=== PATIENT | female | born 1960 | race Caucasian/White ===

== ENCOUNTER 2016-02-23 12:02 | Emergency (ER) | payer BC ==
[2016-02-23 12:20] VITALS: BP 158/96; PULSE 98; TEMP 98.5; BMI 25.8
--- NOTE | 2016-02-23 12:58 | PDOC ---
History of Present Illness - General Chief Complaint: Psychiatric Stated Complaint: DIZZYNESS Time Seen by Provider: 02/23/16 12:04 - History of Present Illness Initial Comments: 02/23/16 13:18 Chief complaint: Warmth and pounding in the chest History of present illness: Patient was feeling well this morning, went shopping , was in a warm crowded store, suddenly felt "a wave of warmth progressing from her feet up her body" accompanied by lightheadedness, perioral and acral tingling, and pounding in her chest. She felt she might pass out, but did not experience syncope or decreased consciousness of any kind. She has a history of anxiety and panic attacks with similar symptoms. Review of systems: Admits that she has had right inguinal pain for several days , described as a momentary sharp stabbing pain that seems to be related to movement and walking. She has been doing a lot of heavy work lately and thinks that she may have strained a muscle. There has been no nausea, vomiting, diaphoresis, diarrhea, chest pain, shortness of breath, hematemesis, melena, bloody stool, urinary tract symptoms, vaginal bleeding or discharge. Remainder of systems reviewed and found to be negative Past medical history: Anxiety, panic attacks, hypertension, right colon resection for infection, details uncertain but probably diverticulitis, childbirth, appendectomy, and cholecystectomy in the distant past. Social history: No tobacco alcohol or prescription drugs. 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 and family stable Family history: Reviewed and noncontributory including early coronary artery disease, metabolic disease including diabetes, and cancer. Physical exam: Alert and oriented 3, well-developed well-nourished, no acute distress, cheerful and cooperative. The patient has no symptoms at present. Afebrile, vital signs normal HEENT clear. Fundi benign with sharp disc margins and good central venous pulsations Neurological C2 to 12 intact. Strength full and symmetric. No focal sensory or motor deficits. Cerebellar intact. Gait stable and unimpaired Neck supple without bruit mass or nodes Chest clear full breath sounds throughout bilaterally no wheezes rales or rhonchi CV S1 and S2 normal without murmur or gallop pulses full and symmetric no JVD or edema 80 and regular. Abdomen nondistended, bowel sounds normal, soft without mass tenderness or organomegaly. Specifically, there is no right lower quadrant or inguinal tenderness to palpation and no pain at present in this area No CVAT Extremities no CCE Skin clear, no rash, good turgor and mucous membranes Impression: Vasovagal near syncope earlier today, symptoms are resolved. Underlying anxiety/panic disorder. Inguinal pain, probably musculoskeletal. Plan: EKG, enzymes, and labs. Urinalysis. Further evaluation and treatment depending on results. Past History - Past Medical History Allergies/Adverse Reactions: Allergies Allergy/AdvReac Type Severity Reaction Status Date / Time aspirin Allergy Rash Verified 02/23/16 12:05 AVELOX Allergy Intermediate Rash Uncoded 02/23/16 12:05 Home Medications: Ambulatory Orders Metoprolol Succinate [Toprol XL -] 25 mg PO HS #0 tab.sr.24h 06/08/11 Biotin 5,000 mcg PO DAILY 02/23/16 Calcium Carbonate/Vitamin D3 [Calcium 600 + Vit D Tablet] 1 each PO DAILY Spironolactone [Aldactone] 100 mg PO DAILY 02/23/16 Anemia: No Asthma: No Cancer: No Cardiac Disorders: No CVA: No COPD: No CHF: No Dementia: No Diabetes: No GI Disorders: No Disorders: No HTN: Yes Hypercholesterolemia: No Liver Disease: No Psychiatric Problems: Yes (PANIC ATTACKS) Seizures: No Thyroid Disease: No - Surgical History Abdominal Surgery: Yes Appendectomy: Yes Cardiac Surgery: No Cholecystectomy: Yes GI Surgery: Yes (COLON RESECTION) Lung Surgery: No Neurologic Surgery: No Orthopedic Surgery: No - Immunization History Immunization Up to Date: Yes - Psycho/Social/Smoking Cessation Hx Anxiety: Yes Suicidal Ideation: No Smoking Status: No Smoking History: Never smoked Have you smoked in the past 12 months: No Number of Cigarettes Smoked Daily: 0 Information on smoking cessation initiated: No Hx Alcohol Use: No Drug/Substance Use Hx: No Substance Use Type: None Hx Substance Use Treatment: No *Physical Exam - Vital Signs Last Vital Signs Temp Pulse Resp BP Pulse Ox 98.5 F 98 H 16 158/96 100 02/23/16 12:12 02/23/16 12:12 02/23/16 12:12 02/23/16 12:12 02/23/16 12:12 ED Treatment Course - LABORATORY CBC & Chemistry Diagram: 02/23/16 13:15 02/23/16 13:15 Medical Decision Making - Medical Decision Making 02/23/16 13:25 EKG reviewed: Normal sinus rhythm, 76/m, occasional PVC, no ST-T wave changes, no signs of ischemia. Probably normal EKG. 02/23/16 14:22 Cardiac enzymes: Negative Urinalysis: Negative. Specifically, no sign of blood that would indicate urinary tract calculus or renal colic. 02/23/16 15:21 Remainder of labs, CBC and chemistries, without significant abnormalities. Patient remains asymptomatic. The nature of vasovagal episodes, panic attacks, and anxiety were discussed with the patient. She is to follow-up with her primary physician for further treatment. She is asymptomatic, fully ambulatory and in no pain or other distress upon discharge with her family to follow up as directed. *DC/Admit/Observation/Transfer Diagnosis at time of Disposition: Vaso-vagal reaction Strain of right inguinal muscle Qualifiers: Encounter type: initial encounter Qualified Code(s): S39.013A - Strain of muscle, fascia and tendon of pelvis, initial encounter - Discharge Dispostion Disposition: HOME Condition at time of disposition: Improved Admit: No - Patient Instructions Printed Discharge Instructions: DI for Syncope in Adults (Fainting) Additional Instructions: Stay well hydrated. Warm compresses to the groin muscles and Tylenol or Advil. See primary physician for recheck in 1-2 days if symptoms persist.
[2016-02-23 13:39] LABS: URINE APPEARANCE Clear; URINE BILIRUBIN Negative (NEGATIVE); URINE BLOOD Negative (NEGATIVE); URINE GLUCOSE (UA) Negative (NEGATIVE); URINE KETONE Negative (NEGATIVE); URINE NITRITE Negative (NEGATIVE); URINE PROTEIN Negative (NEGATIVE); URINE UROBILINOGEN 0.2 E.U/dl (0.2-1.0)
[2016-02-23 13:41] LABS: URINE COLOR YELLOW; URINE LEUK ESTERASE TRACE (NEGATIVE)
[2016-02-23 14:05] LABS: URINE BACTERIA FEW /hpf (NEGATIVE); URINE RBC 0-3 /hpf (0-3); URINE WBC 0-3 (3-5)
[2016-02-23 14:07] LABS: CPK(DFH) 62 IU/L (26-140)
[2016-02-23 14:29] LABS: TROPONIN I (DFP) < 0.03 ng/ml (0.03-0.50)
[2016-02-23 14:34] LABS: BASOPHIL 0.2 % (0-2.0); EOSINOPHIL 0.1 % (0-4.5); MCH 28.8 pg (25.7-33.7); MCHC 32.6 g/dl (32.0-36.0); MEAN CELL VOLUME 88.3 fl (80-96); MEAN PLT VOLUME 8.6 fl (7.5-11.1); PLATELET COUNT 260 K/MM3 (134-434); RDW 12.6 % (11.6-15.6); WHITE BLOOD COUNT 7.1 K/mm3 (4.0-10.0)
[2016-02-23 14:41] LABS: ALBUMIN 4.7 g/dl (3.5-5.0); ALK PHOS 73 U/L (32-92); ANION GAP 9 (8-16); BILIRUBIN,TOTAL 0.6 mg/dl (0.2-1.0); CALCIUM 9.9 mg/dl (8.4-10.2); CO2 24 mmol/L (22-28); CREATININE 0.6 mg/dl (0.6-1.3); GLUCOSE,RANDOM 104 mg/dl (74-106); SGOT/AST 29 U/L (10-42); SGPT/ALT 27 U/L (10-40); TOT PROT 7.5 g/dl (6.4-8.3)
--- NOTE | 2016-02-24 07:54 | EKG ---
Test Reason : Blood Pressure : / mmHG Vent. Rate : 076 BPM Atrial Rate : 076 BPM P-R Int : 164 ms QRS Dur : 098 ms QT Int : 384 ms P-R-T Axes : 060 -03 017 degrees QTc Int : 432 ms SINUS RHYTHM WITH OCCASIONAL PREMATURE VENTRICULAR COMPLEXES OTHERWISE NORMAL ECG WHEN COMPARED WITH ECG OF 31-MAY-2011 15:08, PREMATURE VENTRICULAR COMPLEXES ARE NOW PRESENT Confirmed by GEO MOORE, MARY ([id number]) on 02/24/2016 7:54:09 AM Referred By: OCTAVIO MELLO Confirmed By:MARY GUARDADO MD
== END 2016-02-23 15:31 | disposition home or self-care (01) ==
LOC: FER 12:02
DX: R55 Syncope and collapse (principal); S39.013A Strain of muscle, fascia and tendon of pelvis, initial encounter; I10 Essential (primary) hypertension; F41.0 Panic disorder [episodic paroxysmal anxiety]; X58.XXXA Exposure to other specified factors, initial encounter; Y93.9 Activity, unspecified; Y92.9 Unspecified place or not applicable
CPT/HCPCS: 36415; 80053; 81003; 81015; 82550; 84484; 84703; 85025; 93005; 99283-25

== ENCOUNTER 2019-02-27 11:18 | Day surgery (SDC) | payer BC ==
[2019-02-21 17:57] VITALS: BMI 26.4
[2019-02-27] MEDS ORDERED: PROPOFOL 20 ML ONE ×2 (12:12)
[2019-02-27 13:49] VITALS: TEMP 98
[2019-02-27 14:49] VITALS: BP 129/84; PULSE 80
== END 2019-02-27 14:49 | disposition home or self-care (01) ==
LOC: FASU-ENDO 11:18
PROVIDERS: ATTEND Internal Medicine Gastroenterology
PROC: 0DJD8ZZ Inspection of Lower Intestinal Tract, Via Natural or Artificial Opening Endoscopic (ICD-10-PCS; principal; 2019-02-27 13:20)
DX: Z12.11 Encounter for screening for malignant neoplasm of colon (principal); K64.1 Second degree hemorrhoids

== ENCOUNTER 2019-10-29 09:15 | Emergency (ER) | payer BC ==
[2019-10-29 09:20] VITALS: BP 150/91; PULSE 86; TEMP 98.1; BMI 25.0
--- OUTSIDE RECORDS SUMMARY | 2019-10-29 09:29 | XMS ---
:1960 Author Organization [facility] Support Name Relationship Address Phone UE Unavailable Unavailable Unavailable [employer] [place] [place] [address] [address] [place] [address] Re-disclosure Warning The records that you are about to access may contain information from federally- assisted alcohol or drug abuse programs. If such information is present, then the following federally mandated warning applies: This information has been disclosed to you from records protected by federal confidentiality rules (42 CFR part 2). The federal rules prohibit you from making any further disclosure of this information unless further disclosure is expressly permitted by the written consent of the person to whom it pertains or as otherwise permitted by 42 CFR part 2. A general authorization for the release of medical or other information is NOT sufficient for this purpose. The Federal rules restrict any use of the information to criminally investigate or prosecute any alcohol or drug abuse patient.The records that you are about to access may contain highly sensitive health information, the redisclosure of which is protected by Article 27-F of the [facility] Public Health law. If you continue you may haveaccess to information: Regarding HIV / AIDS; Provided by facilities licensed or operated by the [facility] Office of Mental Health; or Provided by the [facility] Office for People With Developmental Disabilities. If such information is present, then the following [facility] mandated warning applies: This information has been disclosed to you from confidential records which are protected by state law. State law prohibits you from making any further disclosure of this information without the specific written consent of the person to whom it pertains, or as otherwise permitted by law. Any unauthorized further disclosure in violation of state law may result in a fine or group home sentence or both. A general authorization for the release of medical or other information is NOT sufficient authorization for further disclosure. Insurance Providers Payer name Policy type Policy ID Covered Covered democrat's Policy P pepe / Coverage democrat ID relationship to [employer] type [employer] PPO [id number] OT [id number] [address] [id number] PLAN ([facility] )
--- NOTE | 2019-10-29 09:42 | PDOC ---
History of Present Illness - General Chief Complaint: Pain, Acute Stated Complaint: FINGER PAIN Time Seen by Provider: 10/29/19 09:17 History Source: Patient Exam Limitations: No Limitations - History of Present Illness Initial Comments: 10/29/19 09:27 59y right hand dominant female hx of htn, presents with L ring finger pain. Pt had grabbed her 100lb dog by the collar and felt a pain to the distal end of her L ring finger and noticed her finger was bent. she tried to straighten it but it wouldnt straightne, she put ice on it. She denies any other injuries/falls. Denies any open wounds, numbness/tinglig. No pain elsewhere. ROS: pain to L ring finger Denies any numbness/tingling/weakness denie neck pain/head pain exam: General: no acute distress, well appeaing Ext: Normal movement of L shoulder/elbow/wrist, and all digits except for 4th digit - On 4th digit, normal ROM of metacarpal and pIP without any tendereness, on DIP, inability to extend at 4th DIP, no focal bony tenderness, slight deviation of L distal phalanx. flexion intact of DIP joint. No signfiicant sweling or tenderness plan: xray to r/o fx suspect extensor tendon injury pt declines pain medications 10/29/19 10:42 no fx on xray finger placed in fingers plint will refer to ortho for further eval of her finger injury as may need surgical repair elevation/rest, non weight bearing Past History - Medical History Allergies/Adverse Reactions: Allergies Allergy/AdvReac Type Severity Reaction Status Date / Time aspirin Allergy Rash Verified 10/29/19 09:17 AVELOX Allergy Intermediate Rash Uncoded 10/29/19 09:17 Home Medications: Ambulatory Orders Metoprolol Succinate [Toprol XL -] 25 mg PO HS #0 tab.sr.24h 06/08/11 Anemia: No Asthma: No Cancer: No Cardiac Disorders: No CVA: No COPD: No CHF: No Dementia: No Diabetes: No GI Disorders: No Disorders: No HTN: Yes Hypercholesterolemia: Yes Liver Disease: No Psychiatric Problems: Yes (PANIC ATTACKS) Seizures: No Thyroid Disease: No - Surgical History Abdominal Surgery: Yes Appendectomy: Yes Cardiac Surgery: No Cholecystectomy: Yes GI Surgery: Yes (COLON RESECTION) Lung Surgery: No Neurologic Surgery: No Orthopedic Surgery: No - Immunization History Immunization Up to Date: Yes - Psycho-Social/Smoking History Smoking Status: No Smoking History: Never smoked Have you smoked in the past 12 months: No Number of Cigarettes Smoked Daily: 0 - Substance Abuse Hx (Audit-C & DAST Scrn) How often the patient has a drink containing alcohol: Never Score: In Men: 4 or > Positive; In Women: 3 or > Positive: 0 Screen Result (Pos requires Nsg. Audit-10AR): Negative In the last yr the pt used illegal drug/Rx for NonMed reason: No Score: Yes response is considered Positive: 0 Screen Result (Positive result requires Nsg. DAST-10): Negative *Physical Exam - Vital Signs Last Vital Signs Temp Pulse Resp BP Pulse Ox 98.1 F 86 16 150/91 100 10/29/19 09:16 10/29/19 09:16 10/29/19 09:16 10/29/19 09:16 10/29/19 09:16 ED Treatment Course - RADIOLOGY Radiology Studies Ordered: Category Date Time Status FINGER(S) LEFT [RAD] Stat Radiology 10/29/19 09:24 Ordered Discharge - Discharge Information Problems reviewed: Yes Clinical Impression/Diagnosis: Injury of extensor tendon of left hand Qualifiers: Encounter type: initial encounter Qualified Code(s): S66.902A - Unspecified injury of unspecified muscle, fascia and tendon at wrist and hand level, left hand, initial encounter Condition: Stable Disposition: HOME - Admission No - Follow up/Referral Referrals: Raj Guzman MD [Staff Physician] - - Patient Discharge Instructions Patient Printed Discharge Instructions: DI for Finger Extensor Tendon Injury Additional Instructions: Use the splint for comfort. Take motrin/tylenol as needed for pain. Follow up with Dr. Guzman or another hand surgeon within 2 -3 days of your ch oice for evaluation of your injury as you may need surgery. Print Language: JAPANESE - Post Discharge Activity
[2019-10-29] MEDS ORDERED: ACETAMINOPHEN 325 MG TABLET (FP) PO ONE (10:18)
[2019-10-29] MEDS ORDERED: ACETAMINOPHEN 325 MG TABLET (FP) ONE (10:20)
== END 2019-10-29 11:05 | disposition home or self-care (01) ==
LOC: FER 09:15
DX: S66.902A Unspecified injury of unspecified muscle, fascia and tendon at wrist and hand level, left hand, initial encounter (principal)
CPT/HCPCS: 73140-TC-LT-FY; 99283-25

== ENCOUNTER 2021-01-21 09:21 | Day surgery (SDC) | payer BC ==
[2021-01-19 17:54] VITALS: BMI 25.3
[2021-01-21] MEDS ORDERED: BUPIVACAINE HCL/PF 0.25% (2.5MG/ML) 10 ML VIAL ONE ×2 (12:16→12:48)
[2021-01-21] MEDS ORDERED: GLYCOPYRROLATE 0.2 MG/1 ML VIAL ONE (12:20)
[2021-01-21] MEDS ORDERED: PROPOFOL 20 ML ONE (12:20)
[2021-01-21] MEDS ORDERED: MIDAZOLAM HCL 2 MG/2 ML SINGLE DOSE VIAL ONE (12:20)
[2021-01-21] MEDS ORDERED: LIDOCAINE HCL/PF 2% SDV 5ML VIAL ONE (12:24)
[2021-01-21] MEDS ORDERED: ceFAZolin SODIUM 1 GM VIAL ONE (12:34)
[2021-01-21] MEDS ORDERED: SODIUM CHLORIDE 0.9% P/F 10 ML VIAL IJ ONE (12:34)
[2021-01-21] MEDS ORDERED: DEXAMETHASONE SOD PHOSPHATE 4 MG/1 ML VIAL ONE (12:38)
[2021-01-21] MEDS ORDERED: KETOROLAC TROMETHAMINE 30 MG/1 ML VIAL ONE (12:38)
[2021-01-21] MEDS ORDERED: ONDANSETRON 4 MG/2 ML VIAL ONE (12:38)
[2021-01-21] MEDS ORDERED: PROMETHAZINE HCL 25 MG/1 ML VIAL IVPUSH PRN (13:21)
[2021-01-21] MEDS ORDERED: ONDANSETRON 4 MG/2 ML VIAL IVPUSH PRN (13:21)
[2021-01-21] MEDS ORDERED: oxyCODONE HCL 5 MG TABLET PO PRN (13:21)
[2021-01-21] MEDS ORDERED: LACTATED RINGERS SOLUTION 1,000 ML IV SCH (13:30)
[2021-01-21] MEDS ORDERED: PROMETHAZINE HCL 25 MG/1 ML VIAL ONE (14:42)
[2021-01-21 15:04] VITALS: TEMP 97.8
[2021-01-21 16:15] VITALS: BP 101/58; PULSE 71
== END 2021-01-21 16:15 | disposition home or self-care (01) ==
LOC: FASU 09:21
PROVIDERS: ATTEND Orthopaedic Surgery
PROC: 0SBD4ZZ Excision of Left Knee Joint, Percutaneous Endoscopic Approach (ICD-10-PCS; principal; 2021-01-21 12:49)
PROC: 0SBD4ZZ Excision of Left Knee Joint, Percutaneous Endoscopic Approach (ICD-10-PCS; 2021-01-21 12:49)
DX: S83.242A Other tear of medial meniscus, current injury, left knee, initial encounter (principal); S83.282A Other tear of lateral meniscus, current injury, left knee, initial encounter; M17.12 Unilateral primary osteoarthritis, left knee; M25.562 Pain in left knee; X58.XXXA Exposure to other specified factors, initial encounter; Y93.9 Activity, unspecified; Y92.9 Unspecified place or not applicable
CPT/HCPCS: 94760

== ENCOUNTER 2023-10-21 14:50 | Emergency (ER) | payer BC ==
[2023-10-21 15:47] VITALS: BP 125/74; PULSE 73; RESP 20; TEMP 98.2; BMI 26.4
[2023-10-21] MEDS ORDERED: CLINDAMYCIN HCL 150 MG CAPSULE (FP) ONE (16:04)
[2023-10-21] MEDS: DIPHTH,PERTUSS(ACELL),TET 0.5 ML DISP.SYRIN IM ONE (16:05)
[2023-10-21] MEDS: CLINDAMYCIN HCL 150 MG CAPSULE (FP) PO ONE (16:05)
[2023-10-21] MEDS ORDERED: DIPHTH,PERTUSS(ACELL),TET 0.5 ML DISP.SYRIN IM ONE (16:05)
== END 2023-10-21 16:42 | disposition home or self-care (01) ==
LOC: FER 14:50
PROC: 3E0234Z Introduction of Serum, Toxoid and Vaccine into Muscle, Percutaneous Approach (ICD-10-PCS; principal; 2023-10-21)
DX: S90.512A Abrasion, left ankle, initial encounter (principal); L08.9 Local infection of the skin and subcutaneous tissue, unspecified; W01.0XXA Fall on same level from slipping, tripping and stumbling without subsequent striking against object, initial encounter; Z23 Encounter for immunization
CPT/HCPCS: 73610-TC-LT-FY; 90715; 99283-25